=== PATIENT | male | born 1960 | race Caucasian/White ===

== ENCOUNTER 2022-12-21 07:32 | Inpatient (IN) | payer MEDICAID, OTHER ==
[~2022-12-21] VITALS: Ht 188 cm; Wt 88.5 kg
[2022-12-21 07:59] LABS: BASOPHILS % (AUTO) 0.3 % (0.0-2.0); EOSINOPHILS % (AUTO) 0 % (1.0-6.0); HEMATOCRIT 39.3 % (41-53); HEMOGLOBIN 13.3 g/dL (13.5-17.5); LYMPHOCYTES # (AUTO) 0.7 K/uL (1.0-4.8); LYMPHOCYTES % (AUTO) 4.6 % (22.0-44.0); MEAN CORPUSCULAR HEMOGLOBIN 29.3 pg (26.0-34.0); MEAN CORPUSCULAR HGB CONC 33.8 G/dL (31.0-37.0); MEAN CORPUSCULAR VOLUME 87 fL (80-100); MONOCYTES # (AUTO) 0.9 K/uL (0.1-1.0); MONOCYTES % (AUTO) 5.7 % (2.0-9.0); NEUTROPHILS # (AUTO) 13.5 K/uL (1.8-7.7); NEUTROPHILS % (AUTO) 89.4 % (40.0-70.0); PLATELET COUNT (AUTO) 292 K/uL (150-450); RED BLOOD CELL COUNT(AUTO) 4.53 MIL/uL (4.50-5.90); RED CELL DISTRIBUTION WIDTH 14.9 % (11.5-14.5)
[2022-12-21 08:17] LABS: ALANINE AMINOTRANSFERASE 14 U/L (12-78); ALBUMIN 3.5 g/dL (3.4-5.0); ALKALINE PHOSPHATASE 76 U/L (46-116); ANION GAP 10 mmol/L (8-16); ASPARTATE AMINOTRANSFERASE 18 U/L (15-37); BILIRUBIN,TOTAL 0.4 mg/dL (0.1-1.0); CALCIUM, TOTAL 8.3 mg/dL (8.8-10.5); CARBON DIOXIDE 26 mmol/L (22-29); CHLORIDE 99 mmol/L (98-107); CREATININE 0.61 mg/dL (0.60-1.30); GLOMERULAR FILTR. RATE CALC > 60 mL/min (>60); GLUCOSE,RANDOM 164 mg/dL (70-110); SODIUM SERUM 135 mmol/L (136-145); TOTAL PROTEIN, SERUM 7.7 g/dL (6.4-8.2)
[2022-12-21 08:18] LABS: POTASSIUM 2.9 mmol/L (3.5-5.1)
[2022-12-21] MEDS ORDERED: POTASSIUM CHLORIDE 20 MEQ ER TABLET PO ONE (08:30)
[2022-12-21] MEDS ORDERED: LORazepam 1 MG TABLET PO ONE (10:45)
[2022-12-21 10:49] LABS: AMPHET/METH SCREEN,URINE POSITIVE (NEGATIVE); BARBITURATE SCREEN, URINE NEGATIVE (NEGATIVE); BENZODIAZEPINES SCREEN,URINE NEGATIVE (NEGATIVE); CANNABINOID SCREEN,URINE POSITIVE (NEGATIVE); COCAINE SCREEN,URINE NEGATIVE (NEGATIVE); METHADONE SCREEN, URINE NEGATIVE (NEGATIVE); OPIATE SCREEN,URINE NEGATIVE (NEGATIVE); PHENCYCLIDINE SCREEN,URINE NEGATIVE (NEGATIVE)
[2022-12-21] MEDS ORDERED: HALOPERIDOL 5 MG TABLET PO ONE (11:45)
[2022-12-21] MEDS ORDERED: DIAZEPAM 5 MG TABLET PO ONE (12:45)
[2022-12-21] MEDS ORDERED: ZOLPIDEM TARTRATE 10 MG TABLET PO PRN (12:45)
[2022-12-21] MEDS ORDERED: OLANZapine 5 MG RAPDIS TABLET PO PRN (12:45)
[2022-12-21 21:02] LABS: COVID AG,FIA SOURCE NASAL SWAB
[2022-12-22] MEDS ORDERED: CLINDAMYCIN HCL 150 MG CAPSULE PO ONE (08:00)
[2022-12-22 19:02] VITALS: BP 148/91; PULSE 82; RESP 18; TEMP 98; O2SAT 98
[2022-12-22 20:23] VITALS: BP 124/76; PULSE 111; RESP 20; TEMP 97.8; O2SAT 98
[2022-12-22] MEDS: LORazepam 2 MG TABLET PO PRN (21:49)
[2022-12-23] MEDS: LORazepam 2 MG TABLET PO PRN ×4 (02:38→21:19)
[2022-12-23] MEDS ORDERED: ONDANSETRON HCL 4 MG TABLET PO PRN (05:30)
[2022-12-23] MEDS ORDERED: LOPERAMIDE HCL 2 MG CAPSULE PO PRN (05:30)
[2022-12-23] MEDS ORDERED: DOCUSATE SODIUM 100 MG CAPSULE PO PRN (05:30)
[2022-12-23] MEDS ORDERED: BENZOCAINE/MENTHOL LOZENGE PO PRN (05:30)
[2022-12-23] MEDS ORDERED: BACITRACIN 28 GM OINTMENT TP PRN (05:30)
[2022-12-23] MEDS ORDERED: MAGNESIUM HYDROXIDE SUSPENSION 30 ML UDCUP PO PRN (05:30)
[2022-12-23] MEDS ORDERED: PETROLATUM,WHITE 28 GM JELLY TP PRN (05:30)
[2022-12-23] MEDS ORDERED: MAG HYDROX/AL HYDROX/SIMETH ES 30 ML SUSPENSION UDCUP PO PRN (05:30)
[2022-12-23] MEDS ORDERED: ALBUTEROL SULFATE HFA 90 MCG/PUFF 8 GM INHALER IH PRN (05:30)
[2022-12-23] MEDS ORDERED: OMEPRAZOLE 20 MG CAPSULE PO PRN (05:30)
[2022-12-23] MEDS ORDERED: CloNIDine HCL 0.1 MG TABLET PO PRN (05:30)
[2022-12-23 08:10] LABS: BASOPHILS % (AUTO) 0.5 % (0.0-2.0); EOSINOPHILS % (AUTO) 2.3 % (1.0-6.0); HEMATOCRIT 41.9 % (41-53); HEMOGLOBIN 14.2 g/dL (13.5-17.5); LYMPHOCYTES # (AUTO) 2.2 K/uL (1.0-4.8); LYMPHOCYTES % (AUTO) 29.2 % (22.0-44.0); MEAN CORPUSCULAR HEMOGLOBIN 29.3 pg (26.0-34.0); MEAN CORPUSCULAR HGB CONC 33.8 G/dL (31.0-37.0); MEAN CORPUSCULAR VOLUME 87 fL (80-100); MONOCYTES # (AUTO) 0.5 K/uL (0.1-1.0); MONOCYTES % (AUTO) 7.2 % (2.0-9.0); NEUTROPHILS # (AUTO) 4.5 K/uL (1.8-7.7); NEUTROPHILS % (AUTO) 60.8 % (40.0-70.0); PLATELET COUNT (AUTO) 326 K/uL (150-450); RED BLOOD CELL COUNT(AUTO) 4.84 MIL/uL (4.50-5.90); RED CELL DISTRIBUTION WIDTH 14.7 % (11.5-14.5)
[2022-12-23 08:23] LABS: HEMOGLOBIN A1C 5.3 % (3.8-5.6)
[2022-12-23 08:39] LABS: ALANINE AMINOTRANSFERASE 14 U/L (12-78); ALBUMIN 3.3 g/dL (3.4-5.0); ALKALINE PHOSPHATASE 76 U/L (46-116); ANION GAP 7 mmol/L (8-16); ASPARTATE AMINOTRANSFERASE 23 U/L (15-37); BILIRUBIN,TOTAL 0.4 mg/dL (0.1-1.0); CALCIUM, TOTAL 8.5 mg/dL (8.8-10.5); CARBON DIOXIDE 28 mmol/L (22-29); CHLORIDE 100 mmol/L (98-107); CREATININE 0.68 mg/dL (0.60-1.30); GLOMERULAR FILTR. RATE CALC > 60 mL/min (>60); GLUCOSE,RANDOM 113 mg/dL (70-110); POTASSIUM 3.3 mmol/L (3.5-5.1); SODIUM SERUM 135 mmol/L (136-145); THYROID STIMULATING HORMONE 3.11 uIU/mL (0.36-3.74); TOTAL PROTEIN, SERUM 7.6 g/dL (6.4-8.2)
[2022-12-23 08:44] VITALS: BP 131/78; PULSE 92; RESP 17; TEMP 97.6; O2SAT 97
[2022-12-23] MEDS: SULFAMETHOX/TRIMETH DS 800-160 MG/TABLET PO SCH ×2 (09:03→16:53)
[2022-12-23 20:27] VITALS: BP 138/87; PULSE 98; RESP 17; TEMP 98.1; O2SAT 98
[2022-12-23 23:55] VITALS: BP 136/86; PULSE 97; RESP 18; TEMP 97.9; O2SAT 98
[2022-12-24] MEDS: IBUPROFEN 600 MG TABLET PO PRN (00:01)
[2022-12-24 08:26] LABS: BASOPHILS % (AUTO) 0.9 % (0.0-2.0); EOSINOPHILS % (AUTO) 3.1 % (1.0-6.0); HEMATOCRIT 41.7 % (41-53); HEMOGLOBIN 14.3 g/dL (13.5-17.5); LYMPHOCYTES # (AUTO) 2.4 K/uL (1.0-4.8); LYMPHOCYTES % (AUTO) 31.7 % (22.0-44.0); MEAN CORPUSCULAR HEMOGLOBIN 29.7 pg (26.0-34.0); MEAN CORPUSCULAR HGB CONC 34.2 G/dL (31.0-37.0); MEAN CORPUSCULAR VOLUME 87 fL (80-100); MONOCYTES # (AUTO) 0.5 K/uL (0.1-1.0); MONOCYTES % (AUTO) 6.8 % (2.0-9.0); NEUTROPHILS # (AUTO) 4.4 K/uL (1.8-7.7); NEUTROPHILS % (AUTO) 57.5 % (40.0-70.0); PLATELET COUNT (AUTO) 314 K/uL (150-450); RED BLOOD CELL COUNT(AUTO) 4.81 MIL/uL (4.50-5.90); RED CELL DISTRIBUTION WIDTH 14.1 % (11.5-14.5)
[2022-12-24 08:41] VITALS: BP 132/86; PULSE 92; RESP 20; TEMP 98.4; O2SAT 100
[2022-12-24 08:46] LABS: ALBUMIN 3.2 g/dL (3.4-5.0); ASPARTATE AMINOTRANSFERASE 15 U/L (15-37); BILIRUBIN,TOTAL 0.3 mg/dL (0.1-1.0); CREATININE 0.77 mg/dL (0.60-1.30); GLOMERULAR FILTR. RATE CALC > 60 mL/min (>60); HDL CHOLESTEROL 54 mg/dL (40-60); PHOSPHORUS 4.4 mg/dL (2.5-4.9); TOTAL PROTEIN, SERUM 7.4 g/dL (6.4-8.2)
[2022-12-24 08:49] LABS: ALANINE AMINOTRANSFERASE 12 U/L (12-78); ALKALINE PHOSPHATASE 73 U/L (46-116); CALCIUM, TOTAL 8.7 mg/dL (8.8-10.5); CARBON DIOXIDE 26 mmol/L (22-29); CHOL/HDL RATIO 3.3 (4.2-7.3); CHOLESTEROL 180 mg/dL (131-200); GLUCOSE,RANDOM 107 mg/dL (70-110); LDL CHOL (CALC.) 111 mg/dL (0-130); TRIGLYCERIDES 76 mg/dL (15-150)
[2022-12-24 08:55] LABS: ANION GAP 9 mmol/L (8-16); CHLORIDE 103 mmol/L (98-107); POTASSIUM 3.8 mmol/L (3.5-5.1); SODIUM SERUM 138 mmol/L (136-145)
[2022-12-24] MEDS: SULFAMETHOX/TRIMETH DS 800-160 MG/TABLET PO SCH ×2 (09:39→16:49)
[2022-12-24] MEDS ORDERED: NICOTINE POLACRILEX 2 MG LOZENGE PO PRN (14:45)
[2022-12-24] MEDS: LITHIUM CARBONATE 300 MG CAPSULE PO SCH (16:49)
[2022-12-24] MEDS: BENZTROPINE MESYLATE 0.5 MG TABLET PO SCH (16:49)
[2022-12-24] MEDS: RisperiDONE 2 MG TABLET PO SCH (16:49)
[2022-12-24 20:36] VITALS: BP 130/79; PULSE 100; RESP 19; TEMP 97.8; O2SAT 98
[2022-12-25] MEDS: LORazepam 2 MG TABLET PO PRN (01:26)
[2022-12-25] MEDS: IBUPROFEN 600 MG TABLET PO PRN ×2 (05:33→13:45)
[2022-12-25] MEDS: RisperiDONE 2 MG TABLET PO SCH (08:41)
[2022-12-25] MEDS: BENZTROPINE MESYLATE 0.5 MG TABLET PO SCH (08:41)
[2022-12-25] MEDS: SULFAMETHOX/TRIMETH DS 800-160 MG/TABLET PO SCH (08:41)
[2022-12-25] MEDS: LITHIUM CARBONATE 300 MG CAPSULE PO SCH (08:41)
[2022-12-25] MEDS ORDERED: LITH300C3 PO (13:13)
[2022-12-25] MEDS ORDERED: RISP2TAB86 PO (13:13)
[2022-12-25] MEDS ORDERED: SULF-261 PO (13:13)
[2022-12-25] MEDS ORDERED: BENZ0.5T49 PO (13:13)
[2022-12-25 15:05] VITALS: BP 127/79; PULSE 88; RESP 16; TEMP 97.3; O2SAT 98
== END 2022-12-25 15:15 | disposition home or self-care (01) | DRG 751 ==
LOC: EMS 07:38 → EDBD 07:38 → B3A 12-22 14:39
PROVIDERS: ADMIT Psychiatry & Neurology Psychiatry; ATTEND Psychiatry & Neurology Psychiatry
DX: F29 Unspecified psychosis not due to a substance or known physiological condition (principal); E87.1 Hypo-osmolality and hyponatremia; R45.851 Suicidal ideations; E87.6 Hypokalemia; E11.9 Type 2 diabetes mellitus without complications; I10 Essential (primary) hypertension; K21.9 Gastro-esophageal reflux disease without esophagitis; F41.9 Anxiety disorder, unspecified; F20.9 Schizophrenia, unspecified; Z20.822 Contact with and (suspected) exposure to COVID-19; G47.00 Insomnia, unspecified; F17.200 Nicotine dependence, unspecified, uncomplicated; J44.9 Chronic obstructive pulmonary disease, unspecified; F31.9 Bipolar disorder, unspecified; F15.10 Other stimulant abuse, uncomplicated; Z88.0 Allergy status to penicillin; Z88.5 Allergy status to narcotic agent; Z88.6 Allergy status to analgesic agent
CPT/HCPCS: 80053; 80061; 80307; 83036; 83735; 84100; 84132; 84145; 84439; 84443; 85025; 99285; G0480; Q9967